=== PATIENT | female | born 1990 | race Caucasian/White ===

== ENCOUNTER 2018-04-30 09:23 | Emergency (ER) | payer OTHER ==
[~2018-04-30] VITALS: Ht 167.6 cm; Wt 49.9 kg
[2018-04-30 09:29] VITALS: BP 108/56
--- NOTE | 2018-04-30 09:30 | NUR ---
27f bib self with c/o constant non radiating head pain in the right sided parietal region x 3 days. Patient sts pain occured suddenly and gradually getting worse. Patient denies any recent head injury, changes in vision, or n/v. Patient is aox4 to person, place, situation, and time. RR are even and unlabored. Positioned to comfort. All needs met at this time. Will continue to monitor. Awaiting er md rossi.
[2018-04-30 11:35] VITALS: BP 109/57
--- NOTE | 2018-04-30 11:35 | NUR ---
Patient discharged with v/s stable. Written and verbal after care instructions given and explained. Patient alert, oriented and verbalized understanding of instructions. Carried with steady gait. All questions addressed prior to discharge. ID band removed. Patient advised to follow up with PMD. Rx of Ibuprofen and Fioricet given. Patient educated on indication of medication including possible reaction and side effects. Opportunity to ask questions provided and answered.
== END 2018-04-30 11:35 | disposition home or self-care (01) ==
LOC: MED 09:23
DX: G44.89 Other headache syndrome (principal)
CPT/HCPCS: 99283

== ENCOUNTER 2018-12-12 08:35 | Emergency (ER) | payer OTHER ==
[~2018-12-12] VITALS: Ht 170.2 cm; Wt 53.1 kg
[2018-12-12 08:42] VITALS: BP 108/78
--- NOTE | 2018-12-12 08:50 | NUR ---
Patient ambulated to bed 5. RN evaluating patient at bedside.
--- NOTE | 2018-12-12 09:08 | NUR ---
Dr. Diaz evaluating patient at bedside.
[2018-12-12] MEDS ORDERED: NACL 0.9% 1,000 ML IV ONE (09:15)
[2018-12-12] MEDS ORDERED: ONDANSETRON 4 MG/2 ML VIAL IVP ONE (09:15)
[2018-12-12 09:34] LABS: APPEARANCE,URINE HAZY (CLEAR); BILIRUBIN,URINE NEGATIVE (NEGATIVE); BLOOD, URINE TRACE-I (NEGATIVE); COLOR,URINE YELLOW (YELLOW); NITRITE, URINE NEGATIVE (NEGATIVE); PH,URINE 6.5 (5.0-9.0); UGLUCOSE NEGATIVE (NEGATIVE)
[2018-12-12 09:34] LABS: BASOPHILS % (AUTO) 0.3 % (0.0-2.0); EOSINOPHILS % (AUTO) 0.2 % (0.0-4.0); HEMATOCRIT 42.1 % (36-48); LYMPHOCYTES # (AUTO) 1.1 K/uL (2.5-16.5); LYMPHOCYTES % (AUTO) 9.2 % (20.5-51.1); MEAN CORPUSCULAR HEMOGLOBIN 31 pg (27-31); MEAN CORPUSCULAR HGB CONC 33 g/dL (33-37); MEAN CORPUSCULAR VOLUME 92.8 fL (80-94); MONOCYTES # (AUTO) 0.5 K/uL (0.8-1.0); MONOCYTES % (AUTO) 4.5 % (1.7-9.3); NEUTROPHILS # (AUTO) 10.5 K/uL (1.8-7.7); NEUTROPHILS % (AUTO) 85.8 % (42.2-75.2); PLATELET COUNT (AUTO) 289 K/uL (140-450); RED BLOOD CELL COUNT(AUTO) 4.53 MIL/uL (4.20-5.40); RED CELL DISTRIBUTION WIDTH 13.4 % (11.6-13.7); WHITE BLOOD COUNT (AUTO) 12.2 K/uL (4.8-10.8)
[2018-12-12 09:40] LABS: RBC,URINE 0-5 /HPF (0-5)
[2018-12-12 09:41] LABS: LEUKOCYTE ESTERASE ,URINE 1+ (NEGATIVE); WBC,URINE 0-5 /HPF (0-5)
[2018-12-12 09:42] LABS: ANION GAP 16.4 (8-16); CARBON DIOXIDE 25.2 mmol/L (21-32); CREATININE 0.8 mg/dL (0.6-1.3); POTASSIUM 3.6 mmol/L (3.5-5.1)
[2018-12-12 09:48] LABS: ALBUMIN 4.5 g/dL (3.4-5.0); TOTAL BILIRUBIN 1.3 mg/dL (0.0-1.0)
--- NOTE | 2018-12-12 10:05 | NUR ---
PT C/O N/V/D X1 DAY. PT REPORTS VOMITING EVERYTHING SHE DRANK, AND HAS HAD NO APPETITE, AND IS FATIGUED. STATES WATERY BROWN DIARRHEA, REPORTS 10 EPISODES OF YELLOW ORANGE EMESIS. PT DENIES ABD PAIN, FEVER, COUGH. PT REPORTS 5/10 PRESSURE/THROBING HEADACHE
--- NOTE | 2018-12-12 10:25 | NUR ---
ED MADE AWARE THAT PT C/O NAUSEA
--- NOTE | 2018-12-12 10:35 | NUR ---
PT ACTIVELY VOMITING
--- NOTE | 2018-12-12 10:40 | NUR ---
VERBAL ORDER ODT ZOFRAN ADMINISTERED.
[2018-12-12] MEDS ORDERED: ONDANSETRON 4 MG ODT ONE (10:45)
[2018-12-12 11:11] VITALS: BP 105/72
== END 2018-12-12 11:10 | disposition home or self-care (01) ==
LOC: MED 08:35
DX: N39.0 Urinary tract infection, site not specified (principal); R19.7 Diarrhea, unspecified; R51 Headache; J02.9 Acute pharyngitis, unspecified
CPT/HCPCS: 36415; 80053; 81001; 81025; 83690; 85025; 87081; 87086; 96361; 96374; 99283; J2405; J7030; Q0162

== ENCOUNTER 2019-01-27 14:34 | Emergency (ER) | payer OTHER ==
[~2019-01-27] VITALS: Ht 167.6 cm; Wt 49.0 kg
[2019-01-27 14:39] VITALS: BP 111/62
--- NOTE | 2019-01-27 14:43 | NUR ---
TO ED 05 WITH STEADY GAIT. URINE CUP PROVIDED.
--- NOTE | 2019-01-27 14:50 | NUR ---
PATIENT PRESENTS TO ED WITH C/O NAUSEA, VOMITING AND LOWER ABDMINAL PAIN X1 DAY. PT DENIES FEVER. AFEBRILE AT THIS TIME. LBM 01/27/19;DENIES DIARRHEA OR BLOOD IN THE STOOL. DENIES ANY URINARY COMPLICATIONS. DENIES FLANK PAIN. VSS. URINE SAMPLE COLLECTED. PT POSITIONED FOR COMFORT; BEDRAIL UP X1, BED DOWN. PENDING ER MD EVALUATION.
--- NOTE | 2019-01-27 17:00 | NUR ---
PT CONTINUES WITH NAUSEA, NO EPISODES OF VOMITING AT THIS TIME. STATES ABDOMINAL PAIN IS 5/10. NO NEW ORDERS AT THIS TIME. VSS. POSTIONED FOR COMFORT. PENDING ER MD EVALUATION.
[2019-01-27] MEDS ORDERED: NACL 0.9% 1,000 ML IV ONE (17:55)
--- NOTE | 2019-01-27 18:33 | NUR ---
LAB AT BEDSIDE.
[2019-01-27 18:44] LABS: BASOPHILS % (AUTO) 0.3 % (0.0-2.0); EOSINOPHILS % (AUTO) 0.2 % (0.0-4.0); HEMATOCRIT 39.3 % (36-48); LYMPHOCYTES # (AUTO) 0.6 K/uL (2.5-16.5); LYMPHOCYTES % (AUTO) 7.9 % (20.5-51.1); MEAN CORPUSCULAR HEMOGLOBIN 31 pg (27-31); MEAN CORPUSCULAR HGB CONC 33 g/dL (33-37); MEAN CORPUSCULAR VOLUME 92.3 fL (80-94); MONOCYTES # (AUTO) 0.5 K/uL (0.8-1.0); MONOCYTES % (AUTO) 5.8 % (1.7-9.3); NEUTROPHILS % (AUTO) 85.8 % (42.2-75.2); PLATELET COUNT (AUTO) 179 K/uL (140-450); RED BLOOD CELL COUNT(AUTO) 4.26 MIL/uL (4.20-5.40); RED CELL DISTRIBUTION WIDTH 12.9 % (11.6-13.7); WHITE BLOOD COUNT (AUTO) 8.2 K/uL (4.8-10.8)
[2019-01-27 18:51] LABS: ANION GAP 11.4 (8-16); CARBON DIOXIDE 25.4 mmol/L (21-32); CREATININE 0.7 mg/dL (0.6-1.3); POTASSIUM 3.8 mmol/L (3.5-5.1)
[2019-01-27 18:59] LABS: ALBUMIN 3.8 g/dL (3.4-5.0); TOTAL BILIRUBIN 0.9 mg/dL (0.0-1.0)
--- NOTE | 2019-01-27 19:31 | NUR ---
report given to CATHY baker. transfer of care at this time.
--- NOTE | 2019-01-27 19:44 | NUR ---
IV removed, catheter intact and site benign. Applied folded 4x4 gauze and tape to stop bleeding.
[2019-01-27 19:45] VITALS: BP 110/80
--- NOTE | 2019-01-27 19:45 | NUR ---
Patient discharged with v/s stable. Written and verbal after care instructions given and explained. Patient alert, oriented and verbalized understanding of instructions. Ambulatory with steady gait. All questions addressed prior to discharge. ID band removed. Patient advised to follow up with PMD. Rx of Bentyl 20mg and Zofran ODT 4mg given. Patient educated on indication of medication including possible reaction and side effects. Opportunity to ask questions provided and answered.
== END 2019-01-27 19:45 | disposition home or self-care (01) ==
LOC: MED 14:34
DX: K52.9 Noninfective gastroenteritis and colitis, unspecified (principal)
CPT/HCPCS: 36415; 80053; 81002; 81025; 83690; 85025; 96360; 99283; J7030; 90715